=== PATIENT | female | born 1990 | race Caucasian/White ===

== ENCOUNTER 2016-10-25 10:18 | Inpatient (IN) | payer OTHER ==
[2016-10-25] VITALS (9 sets, daily range): BP systolic 118–132; BP diastolic 60–73; PULSE 72–96; RESP 16–21; TEMP 98.3–98.6; O2SAT 99–100
[~2016-10-25] VITALS: Ht 160 cm; Wt 67.0 kg
[2016-10-25] MEDS ORDERED: IOHEXOL 350 MG/ML 10 ML VIAL (for RAD DIAG) IVCONTRAST ONE (10:19)
[2016-10-25] MEDS ORDERED: SODIUM CHLOR 0.9% 1000 ML INJ 1,000 ML IV SCH (10:34)
[2016-10-25] MEDS ORDERED: ONDANSETRON HCL 4 MG/2 ML VIAL IVP ONE (10:45)
[2016-10-25] MEDS ORDERED: MORPHINE SULFATE 4 MG/ML INJ IV ONE (10:45)
[2016-10-25] MEDS ORDERED: DIPHTH/TETANUS/ACEL PERTUSSIS (BOOSTER) 0.5 ML VIAL/PFS IM ONE (10:45)
[2016-10-25] MEDS ORDERED: ceFAZolin 2 GM PREMIX 50 ML IV ONE (10:45)
[2016-10-25] MEDS ORDERED: SODIUM CHLORIDE 0.9% FLUSH 10 ML FLUSH IVF PRN (10:45)
[2016-10-25] MEDS ORDERED: LIDOCAINE 1%/EPINEPHrine 1:100,000 SOLN 20 ML VIAL INFIL ONE (11:15)
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
[2016-10-25 11:30] LABS: AUTOMATED NEUTROPHIL # 9.4 TH/MM3 (1.8-7.7); BASOPHIL # 0.1 TH/MM3 (0-0.2); BASOPHIL % 0.5 % (0.0-2.0); EOSINOPHIL # 0.2 TH/MM3 (0-0.4); EOSINOPHIL % 2.1 % (0.0-4.0); HEMATOCRIT 45.1 % (35.0-46.0); HEMO FLAGS DIFF FINAL; LYMPH % 13.3 % (9.0-44.0); LYMPHOCYTE # 1.6 TH/MM3 (1.0-4.8); MEAN CELL VOLUME 87.5 FL (80.0-100.0); MEAN CORPUSCULAR HEMOGLOBIN 29.1 PG (27.0-34.0); MEAN CORPUSCULAR HGB CONC 33.3 % (32.0-36.0); MONO % 4.7 % (0.0-8.0); NEUT % 79.4 % (16.0-70.0); PLATELET COUNT 185 TH/MM3 (150-450); RED BLOOD COUNT 5.15 MIL/MM3 (4.00-5.30); RED CELL DISTRIBUTION WIDTH 13.1 % (11.6-17.2); WHITE BLOOD COUNT 11.9 TH/MM3 (4.0-11.0)
[2016-10-25] MEDS ORDERED: LIDOCAINE HCL 1% 50 ML VIAL INFIL ONE (11:30)
[2016-10-25 11:32] LABS: APTT (PATIENT) 24.3 SEC (24.3-30.1); INTERNATIONAL NORMALIZED RATIO 0.9 RATIO; PROTHROMBIN TIME - PATIENT 10.2 SEC (9.8-11.6)
[2016-10-25 11:35] LABS: ANION GAP 7 MEQ/L (5-15); BICARBONATE 21.9 MEQ/L (21.0-32.0); BLOOD UREA NITROGEN 17 MG/DL (7-18); CHLORIDE 110 MEQ/L (98-107); GLOMERULAR FILTRATION RATE 86 ML/MIN (>89); POTASSIUM 4.1 MEQ/L (3.5-5.1); SODIUM (NA) 139 MEQ/L (136-145)
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
[2016-10-25] MEDS ORDERED: PROMETHAZINE INJ 25 MG/ML VIAL IM ONE (11:45)
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
[2016-10-25 12:17] LABS: ALCOHOL LESS THAN 3 MG/DL (0-5)
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
[2016-10-25] MEDS ORDERED: HYDROmorphone HCL PF 1 MG/ML VIAL IV PUSH ONE (14:15)
[2016-10-25] MEDS ORDERED: ACETAMINOPHEN 325 MG TAB PO PRN (16:00)
[2016-10-25] MEDS ORDERED: ALUMINUM/MAGNESIUM/SIMETH 30 ML CUP PO PRN (16:00)
[2016-10-25] MEDS ORDERED: MENTHOL LOZENGE BUCCAL PRN (16:00)
[2016-10-25] MEDS ORDERED: CALCIUM GLUCONATE INJ 1 GM in SODIUM CHLORIDE 0.9% INJ 100 ML IV PRN (16:00)
[2016-10-25] MEDS ORDERED: LABETALOL HCL 100 MG/20 ML VIAL IV PRN (16:00)
[2016-10-25] MEDS ORDERED: POTASSIUM CHLOR 20 MEQ PREMIX 100 ML IV PRN (16:00)
[2016-10-25] MEDS ORDERED: RESP: ALBUTEROL 2.5 MG/3 ML NEB (PRN) NEB (16:00)
[2016-10-25] MEDS ORDERED: MAGNESIUM SULFATE INJ 2 GM in SODIUM CHLORIDE 0.9% INJ 100 ML IV PRN (16:00)
[2016-10-25] MEDS ORDERED: SODIUM CHLORIDE 0.9% FLUSH 10 ML FLUSH IV FLUSH PRN (16:00)
[2016-10-25] MEDS ORDERED: MAGNESIUM HYDROXIDE SUSP 30 ML CUP PO PRN (16:00)
[2016-10-25] MEDS ORDERED: ZOLPIDEM TARTRATE 5 MG TAB PO PRN (16:00)
[2016-10-25] MEDS ORDERED: LORazepam 2 MG/ML VIAL IVP PRN (16:00)
[2016-10-25] MEDS ORDERED: cloNIDine HCL 0.1 MG TAB PO PRN (16:00)
[2016-10-25] MEDS ORDERED: ACETAMINOPHEN/HYDROcodone 325 MG/10 MG TAB PO PRN (16:00)
[2016-10-25] MEDS: ONDANSETRON HCL 4 MG/2 ML VIAL IV PRN ×2 (16:09→23:45)
[2016-10-25] MEDS: MORPHINE SULFATE 4 MG/ML INJ IV PRN ×3 (16:53→21:14)
[2016-10-25 17:15] LABS: BETA HCG QUANT LESS THAN 1 MIU/ML (0-5)
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
[2016-10-25] MEDS: SODIUM CHLORIDE 0.9% FLUSH 10 ML FLUSH IV FLUSH SCH (20:24)
[2016-10-25] MEDS: DOCUSATE SODIUM 100 MG CAP PO SCH (20:24)
[2016-10-25] MEDS: PROMETHAZINE INJ 25 MG/ML VIAL IM PRN (20:24)
[2016-10-25] MEDS: BACITRACIN TOP OINT 15 GM TUBE TOP SCH (20:25)
[2016-10-26] VITALS (14 sets, daily range): BP systolic 104–131; BP diastolic 55–73; PULSE 60–80; RESP 20–30; TEMP 98.1–99.1; O2SAT 95–100
[2016-10-26] MEDS: PROMETHAZINE INJ 25 MG/ML VIAL IM PRN (03:32)
[2016-10-26] MEDS: MORPHINE SULFATE 4 MG/ML INJ IV PRN ×2 (03:32→11:11)
[2016-10-26 05:43] LABS: AUTOMATED NEUTROPHIL # 13.1 TH/MM3 (1.8-7.7); BASOPHIL % 0.1 % (0.0-2.0); EOSINOPHIL % 0.1 % (0.0-4.0); HEMATOCRIT 40.2 % (35.0-46.0); HEMO FLAGS DIFF FINAL; LYMPH % 7.9 % (9.0-44.0); LYMPHOCYTE # 1.2 TH/MM3 (1.0-4.8); MEAN CELL VOLUME 86.7 FL (80.0-100.0); MEAN CORPUSCULAR HEMOGLOBIN 28.7 PG (27.0-34.0); MEAN CORPUSCULAR HGB CONC 33.1 % (32.0-36.0); MONO % 6.2 % (0.0-8.0); NEUT % 85.7 % (16.0-70.0); PLATELET COUNT 152 TH/MM3 (150-450); RED BLOOD COUNT 4.63 MIL/MM3 (4.00-5.30); RED CELL DISTRIBUTION WIDTH 12.9 % (11.6-17.2); WHITE BLOOD COUNT 15.3 TH/MM3 (4.0-11.0)
--- NOTE | 2016-10-26 05:57 | RADRPT ---
EXAM DATE/TIME: 10/26/2016 05:41 [facility] COMPARISON: CT BRAIN W/O CONTRAST, October 25, 2016, 12:46. INDICATIONS : Follow up hemorrhage. RADIATION DOSE: 30.34 CTDIvol (mGy) MEDICAL HISTORY : None SURGICAL HISTORY : ENCOUNTER: Subsequent ACUITY: 1 day PAIN SCALE: 8/10 LOCATION: cranial TECHNIQUE: Multiple contiguous axial images were obtained of the head. Using automated exposure control and adj ustment of the mA and/or kV according to patient size, radiation dose was kept as low as reasonably a chievable to obtain optimal diagnostic quality images. DICOM format image data is available electro nically for review and comparison. FINDINGS: Evolution of subarachnoid blood products in the left frontoparietal high convexities. New focal hypod ensity in the left frontoparietal region there is a small contusion. No interval intercurrent hemorrh age. Grover-white matter differentiation is maintained. Ventricles are normal. No significant mass effe ct. Basilar cisterns are maintained. Calvarium is intact. Fluid noted in the left maxillary sinus is partially imaged. Remainder of exam is unchanged. CONCLUSION: 1. Evolving small amount of subarachnoid hemorrhage primarily in the left frontoparietal high convexi ties. 2. New focal hypodensity in the left frontoparietal high convexities may reflect a small contusion. 3. No new intercurrent hemorrhage or significant mass effect. Travis Gregorio MD on October 26, 2016 at 5:51 Board Certified Radiologist. This report was verified electronically.
[2016-10-26 06:07] LABS: BICARBONATE 24.8 MEQ/L (21.0-32.0); POTASSIUM 3.7 MEQ/L (3.5-5.1)
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
[2016-10-26] MEDS ORDERED: INFLUENZA VIRUS VACCINE (QUADRIVALENT) 0.5 ML SYR IM ONE (09:00)
[2016-10-26] MEDS ORDERED: PNEUMOCOCCAL POLYVALENT INJ 25 MCG/0.5 ML SYR IM ONE (09:00)
[2016-10-26] MEDS: DOCUSATE SODIUM 100 MG CAP PO SCH ×2 (09:16→21:11)
[2016-10-26] MEDS: PANTOPRAZOLE SOD 40 MG DELAYED RELEASE TAB PO SCH (09:16)
[2016-10-26] MEDS: BACITRACIN TOP OINT 15 GM TUBE TOP SCH ×2 (09:18→21:11)
[2016-10-26] MEDS: SODIUM CHLORIDE 0.9% FLUSH 10 ML FLUSH IV FLUSH SCH ×2 (11:12→21:00)
[2016-10-26] MEDS: SODIUM CHLOR 0.9% 1000 ML INJ 1,000 ML IV SCH ×2 (14:00→23:43)
[2016-10-26] MEDS: ACETAMINOPHEN/HYDROcodone 325 MG/10 MG TAB PO PRN ×2 (14:22→21:05)
[2016-10-26] MEDS: ONDANSETRON HCL 4 MG/2 ML VIAL IV PRN (14:23)
--- NOTE | 2016-10-26 17:18 | RADRPT ---
EXAM DATE/TIME: 10/26/2016 12:05 [facility] COMPARISON: No previous studies available for comparison. INDICATIONS : Right hand pain, swelling, and bruising in the base of third digit. MEDICAL HISTORY : None. SURGICAL HISTORY : None. ENCOUNTER: Subsequent ACUITY: 2 days PAIN SCORE: 6/10 LOCATION: Right hand FINDINGS: Two view examination of the right hand demonstrates no soft tissue swelling, dislocation, or fracture . The joint spaces are maintained. Bony mineralization is normal. CONCLUSION: Negative exam. Joaquín Whitehead MD on October 26, 2016 at 17:16 Board Certified Radiologist. This report was verified electronically.
--- NOTE | 2016-10-26 17:55 | RADRPT ---
EXAM DATE/TIME: 10/26/2016 12:00 [facility] COMPARISON: No previous studies available for comparison. INDICATIONS : Left hand pain, swelling, and bruising in 4th and 5th digit. MEDICAL HISTORY : None. SURGICAL HISTORY : None. ENCOUNTER: Subsequent ACUITY: 2 days PAIN SCORE: 7/10 LOCATION: Left hand FINDINGS: Two view examination of the left hand demonstrates no soft tissue swelling, dislocation, or fracture. The joint spaces are maintained. Bony mineralization is normal. CONCLUSION: Unremarkable limited examination of the left hand. Matt Wilson MD on October 26, 2016 at 17:53 Board Certified Radiologist. This report was verified electronically.
[2016-10-27 00:53] VITALS: BP 120/73; PULSE 64; RESP 18; TEMP 98.3; O2SAT 99
[2016-10-27] MEDS: ACETAMINOPHEN/HYDROcodone 325 MG/10 MG TAB PO PRN (03:54)
[2016-10-27 06:01] VITALS: BP 121/61; PULSE 73; RESP 16; TEMP 98.1; O2SAT 98
[2016-10-27 08:00] VITALS: BP 117/62; PULSE 65; RESP 18; TEMP 98.2; O2SAT 100
[2016-10-27] MEDS: DOCUSATE SODIUM 100 MG CAP PO SCH (09:15)
[2016-10-27] MEDS: PANTOPRAZOLE SOD 40 MG DELAYED RELEASE TAB PO SCH (09:15)
[2016-10-27] MEDS: SODIUM CHLORIDE 0.9% FLUSH 10 ML FLUSH IV FLUSH SCH (09:17)
[2016-10-27] MEDS: BACITRACIN TOP OINT 15 GM TUBE TOP SCH (09:17)
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
[2016-10-27] MEDS ORDERED: ZOFR4TAB PO (10:27)
[2016-10-27] MEDS ORDERED: BACI500O2 TOP (10:27)
== END 2016-10-27 11:55 | disposition home or self-care (01) | DRG 84 ==
LOC: NEPE 10:18 → NEDA 13:58 → OBSVTOIN 15:53 → N03A 17:25 → N05A 10-26 23:34
PROVIDERS: ADMIT Neurological Surgery; ATTEND Neurological Surgery
DX: S06.6X9A Traumatic subarachnoid hemorrhage with loss of consciousness of unspecified duration, initial encounter (principal); S81.012A Laceration without foreign body, left knee, initial encounter; F17.210 Nicotine dependence, cigarettes, uncomplicated; M93.20 Osteochondritis dissecans of unspecified site; V49.50XA Passenger injured in collision with unspecified motor vehicles in traffic accident, initial encounter; Y92.410 Unspecified street and highway as the place of occurrence of the external cause
CPT/HCPCS: 12032; 70450; 71010; 71260; 72125; 73120; 73564; 74177; 80048; 80307; 84702; 84703; 85025; 85610; 85730; 86850; 86900; 86901; 90471; 90715; 94150; 96365; 96375; E0113; J0690; J1170; J2270; J2405; J2550; J7030; Q9967

== ENCOUNTER 2016-11-03 12:18 | Emergency (ER) | payer OTHER ==
[~2016-11-03] VITALS: Ht 157.5 cm; Wt 65.0 kg
[~2016-11-03 12:18] MED LIST: BACI500O2 TOP; ZOFR4TAB PO
[2016-11-03 12:20] VITALS: BP 130/84; PULSE 126; RESP 20; TEMP 99.6; O2SAT 98
[2016-11-03 12:28] VITALS: PULSE 138; TEMP 99
[2016-11-03 13:26] VITALS: BP 131/84; PULSE 105; RESP 20; O2SAT 99
[2016-11-03] MEDS ORDERED: SODIUM CHLOR 0.9% 1000 ML INJ 1,000 ML IV SCH (13:36)
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
[2016-11-03 13:46] VITALS: O2SAT 99
[2016-11-03 14:25] LABS: BASOPHIL % 0.3 % (0.0-2.0); EOSINOPHIL # 0.1 TH/MM3 (0-0.4); EOSINOPHIL % 0.9 % (0.0-4.0); HEMATOCRIT 39.4 % (35.0-46.0); HEMO FLAGS DIFF FINAL; LYMPH % 14.9 % (9.0-44.0); LYMPHOCYTE # 1.5 TH/MM3 (1.0-4.8); MEAN CELL VOLUME 87.6 FL (80.0-100.0); MEAN CORPUSCULAR HGB CONC 33.1 % (32.0-36.0); MONO % 6.5 % (0.0-8.0); NEUT % 77.4 % (16.0-70.0); PLATELET COUNT 235 TH/MM3 (150-450); RED CELL DISTRIBUTION WIDTH 12.4 % (11.6-17.2); WHITE BLOOD COUNT 10.3 TH/MM3 (4.0-11.0)
[2016-11-03 14:46] LABS: BICARBONATE 22.9 MEQ/L (21.0-32.0); POTASSIUM 3.8 MEQ/L (3.5-5.1)
== END 2016-11-03 15:13 | disposition home or self-care (01) ==
LOC: NEPD 12:18
DX: R00.0 Tachycardia, unspecified (principal); R51 Headache
CPT/HCPCS: 80048; 85025; 99283; J7030

== ENCOUNTER 2016-11-08 16:51 | Emergency (ER) | payer OTHER ==
[~2016-11-08] VITALS: Ht 157.5 cm; Wt 65.0 kg
[2016-11-08 16:52] VITALS: BP 123/85; PULSE 91; RESP 12; TEMP 98.4; O2SAT 98
--- NOTE | 2016-11-08 17:07 | PD ---
HPI Chief Complaint: Wound/Suture/Staple Re-Check Time Seen by Provider: 17:05 Travel History International Travel<30 days: No Contact w/Intl Traveler<30days: No Traveled to known affect area: No History of Present Illness HPI 26-year-old female presents to emergency department requesting suture removal from her left knee. Sutures in place for 2 weeks. Denies drainage from the wound site. Denies fever, vomiting. Symptoms are mild in severity. No known relieving or aggravating factors. Has no other medical complaints. No known allergies. No other modifying factors or associated signs and symptoms. PFSH Past Medical History Cancer: No Cardiovascular Problems: No Endocrine: No Genitourinary: Yes Immune Disorder: No Implanted Vascular Access Dvce: Yes Kidney Stones: No Musculoskeletal: No (current admission) Neurologic: No (current admission) Psychiatric: No Reproductive: No Respiratory: No Renal Failure: No Tetanus Vaccination: < 5 Years ?: Not LMP: 11/01/16 Past Surgical History Body Medical Devices: Intra Uterine Devices Ear Surgery: Yes (TUBES) Other Surgery: No Social History Alcohol Use: Yes (OCCAS) Tobacco Use: Yes (1 PPD) Substance Use: No Allergies-Medications (Allergen,Severity, Reaction): Coded Allergies: No Known Allergies (Unverified , 11/08/16) Reported Meds & Prescriptions Reported Meds & Active Scripts Active Review of Systems Except as stated in HPI: all other systems reviewed are Neg Physical Exam Narrative GENERAL: Well-nourished, well-developed female patient, in no acute distress SKIN: Warm and dry. Left anterior knee with wound that is well approximated and with sutures intact; granulated tissue noted that all areas are well approximated where sutures are intact; wound is without erythema, edema, drainage. No signs of infection. HEAD: Atraumatic. Normocephalic. EYES: Pupils equal and round. No scleral icterus. No injection or drainage. ENT: Mucosa pink and moist. Airway patent. NECK: Trachea midline. CARDIOVASCULAR: Regular rate. RESPIRATORY: No accessory muscle use. GASTROINTESTINAL: Flat. MUSCULOSKELETAL: No obvious deformities. No clubbing. No cyanosis. No edema. NEUROLOGICAL: Awake and alert. Oriented 3. No obvious cranial nerve deficits. Motor grossly within normal limits. Normal speech. PSYCHIATRIC: Appropriate mood and affect; insight and judgment normal. Data Data Last Documented VS Vital Signs Date Time Temp Pulse Resp B/P (MAP) Pulse Ox O2 Delivery O2 Flow Rate FiO2 11/08/16 17:38 11/08/16 16:52 98.4 91 12 98 MDM Medical Decision Making Medical Screen Exam Complete: Yes Emergency Medical Condition: Yes Medical Record Reviewed: Yes Differential Diagnosis Suture removal, wound recheck, medical clearance Narrative Course 26-year-old female presents for suture removal of her left anterior knee. Sutures in place for 2 weeks. There are no signs of infection. Sutures removed. Patient tolerated well. Band-Aid applied. Instructed patient to follow up with primary care provider. Patient verbalizes understanding and agreement with treatment plan. Patient is medically cleared and stable for discharge. Discussed reasons to return to the emergency department. Patient agrees with treatment plan. The patients vital signs are stable and the patient is stable for outpatient follow-up and treatment. Patient discharged home, stable and in no acute distress. Diagnosis Primary Impression: Encounter for removal of sutures Referrals: Primary Care Physician Patient Instructions: Acute Wound Care (DC), General Instructions, Stitches Removal (ED) Departure Forms: Tests/Procedures, Work Release Enter return to work date: Nov 08, 2016 Additional Instructions: Ibuprofen or Tylenol instructed as needed for pain Keep area clean and dry Follow-up with primary care provider Return to the emergency department immediately for worsening of symptoms Med/Other Pt SpecificInfo: No Meds Exist/No RX given Disposition: 01 DISCHARGE HOME Condition: Stable Lizeth Oneil Nov 08, 2016 17:07
== END 2016-11-08 17:38 | disposition home or self-care (01) ==
LOC: NEPK 16:51
DX: Z48.02 Encounter for removal of sutures (principal); F17.200 Nicotine dependence, unspecified, uncomplicated
CPT/HCPCS: 99281